=== PATIENT | female | born 1965 | race Caucasian/White ===

== ENCOUNTER 2024-05-20 15:29 | Emergency (ER) | payer SELFPAY ==
[2024-05-20 15:44] VITALS: BP 178/110
[2024-05-20 16:15] LABS: Urine Albumin 2+ (Neg - Trace); Urine Bilirubin 3+ (Negative); Urine Character Clear (Clear); Urine Glucose Negative (Negative); Urine Ketone Negative (Negative); Urine Leukocyte Negative (Negative); Urine Nitrite Positive (Negative); Urine Occult Blood 2+ (Negative); Urine Urobilinogen 3+ (Neg - 1+)
[2024-05-20 16:16] LABS: Urine Color Orange
[2024-05-20 16:18] LABS: % Basophils 0.4 % (0-2); % Eosinophils 2.9 % (0-6); % Immature Granulocytes 0.1 % (0-0.5); % Lymphocytes 26.9 % (20.5-51.1); % Monocytes 5.6 % (1.7-9.3); % Neutrophils 64.1 % (42.2-75.2); Absolute Eosinophils 0.2 10^3/uL (0-0.7); Absolute Lymphocytes 2.2 10^3/uL (1.2-3.4); Absolute Monocytes 0.5 10^3/uL (0.1-0.6); Absolute Neutrophils 5.2 10^3/uL (1.4-6.5); Hematocrit 43.2 % (37.0-47.0); Hemoglobin 13.9 g/dL (12.0-16.0); Mean Corp Hgb Conc. 32.2 g/dL (33.0-37.0); Mean Corpuscular Hgb 27.7 pg (27.0-31.0); Mean Corpuscular Volume 86.1 fL (81.0-99.0); Mean Platelet Volume 9.7 fL (7.4-10.4); Nucleated Red Blood Cells % 0 %; Platelet Count 374 10^3/uL (130-400); Red Blood Cell Count 5.02 10^6/uL (4.20-5.40); Red Cell Dist. Width 14.4 % (11.5-14.5)
[2024-05-20 16:26] LABS: Urine Bacteria Few (Negative); Urine White Cell 0-2 /HPF (0-5)
[2024-05-20 16:27] LABS: ALT (SGPT) 20 U/L (0-35); AST (SGOT) 27 U/L (14-36); Albumin 4.9 g/dl (3.5-5.0); Alkaline Phosphatase 79 U/L (38-126); Blood Urea Nitrogen 23 mg/dl (7-17); Carbon Dioxide 26 mmol/L (22-30); Chloride 101 mmol/L (98-107); Glucose 91 mg/dl (70-99); Potassium 3.9 mmol/L (3.5-5.1); Sodium 139 mmol/L (135-145); Total Bilirubin 0.7 mg/dl (0.2-1.3); Total Protein 6.9 g/dl (6.3-8.2); eGFR > 60.00
[2024-05-20 16:35] LABS: Urine Red Blood Cell 0-2 /HPF (0-2)
[2024-05-20 17:02] LABS: Ferritin 7.4 ng/ml (11.1-264.0)
== END 2024-05-20 17:22 | disposition left against medical advice (07) ==
LOC: EMR 15:29
PROVIDERS: EMERGENCY PHYSICIAN Emergency Medicine
DX: R06.02 Shortness of breath (principal); Z53.21 Procedure and treatment not carried out due to patient leaving prior to being seen by health care provider
CPT/HCPCS: 80053; 81003; 81015; 82728; 85025; 87086; 93005